=== PATIENT | female | born 1985 | race Caucasian/White ===

== ENCOUNTER 2022-03-21 11:25 | Day surgery (SDC) | payer OTHER | END 2022-03-21 12:45 | disposition home or self-care (01) | LOC: CSHSDC/OP 11:25 | PROVIDERS: ATTEND Obstetrics & Gynecology | DX: Z29.13 Encounter for prophylactic Rho(D) immune globulin (principal); Z67.11 Type A blood, Rh negative; Z3A.31 31 weeks gestation of pregnancy | CPT/HCPCS: 96372 ==

== ENCOUNTER 2022-05-09 10:45 | Outpatient (CLI) | payer OTHER | END 2022-05-09 10:46 | disposition home or self-care (01) | LOC: CSHLAB 10:45 | PROVIDERS: ATTEND Obstetrics & Gynecology | DX: Z20.822 Contact with and (suspected) exposure to COVID-19 (principal) | CPT/HCPCS: 87811 ==

== ENCOUNTER 2022-05-13 05:18 | Inpatient (IN) | payer OTHER ==
[~2022-05-13 05:18] MED LIST: Acetaminophen 500 MG TAB PO PRN; Carboprost 250 MCG/ML AMP IM PRN; Diphenoxylate HCl/Atropine Tablet PO PRN; Docusate 100 MG CAP PO PRN; HYDROcodone/Acetaminophen 5/325 mg Tablet PO PRN; Ibuprofen 800 MG TAB PO PRN; Lidocaine 1% (PF) 30 ML VIAL SC PRN; Methylergonovine 0.2 MG/ML VIAL IM PRN; Misoprostol 200 MCG TAB PR PRN; NS w/ Oxytocin 30 units 500 ML IV SCH; Ondansetron PF 4 MG/2 ML Vial IVP PRN; Promethazine HCl 25 MG/ML VIAL IM PRN; hydrALAZINE 20 MG/ML VIAL SLOW IVP PRN
[2022-05-13 05:43] VITALS: BMI 21.5
[2022-05-13 06:23] LABS: Hemoglobin 10.4 g/dL (12.0-15.5); Mean Corpuscular HGB CONC 33.8 g/dL (32.0-36.0); Mean Corpuscular Hemoglobin 29.6 pg (27.0-33.0); Mean Corpuscular Volume 87.7 fl (81.6-98.3); Mean Platelet Volume 10.1 fl (7.4-10.4); Platelet Count 187 10x3/uL (150-450); Red Blood Cell (RBC) Count 3.51 10x6/uL (3.90-5.03); White Blood Cell (WBC) Count 9.3 10x3/uL (3.5-10.5)
[2022-05-13 07:00] LABS: Syphilis Antibody Nonreactive (Nonreactive); Syphilis Antibody Index 0.02 S/CO (<1.00 Non-Reactive)
[2022-05-13 07:01] LABS: Hep B Surf Ag Non-Reactive S/CO (NonReactive)
[2022-05-13 07:09] LABS: HBSAg Index 0.22 S/CO (0-0.99)
[2022-05-13] MEDS ORDERED: Fentanyl 2 mcg/Bup 0.1% Cadd 100 ML ONE (12:16)
[2022-05-13] MEDS: Lactated Ringer's 1,000 ML IV SCH ×4 (12:49→20:30)
[2022-05-13] MEDS ORDERED: Acetaminophen 325 MG TAB PO PRN (12:54)
[2022-05-13] MEDS ORDERED: Promethazine HCl 25 MG/ML VIAL IM PRN ×2 (12:54→15:23)
[2022-05-13] MEDS ORDERED: Naloxone HCl 0.4 mg/ml Vial IVP PRN ×2 (12:54)
[2022-05-13] MEDS ORDERED: ePHEDrine Sulfate 50 MG/10 ML VIAL SLOW IVP PRN (12:54)
[2022-05-13] MEDS ORDERED: diphenhydrAMINE 50 MG/ML VIAL IVP PRN (12:54)
[2022-05-13] MEDS ORDERED: Moisturizing Cream (Eucerin) 113 GM JAR TOP PRN (12:54)
[2022-05-13] MEDS ORDERED: Ondansetron PF 4 MG/2 ML Vial IVP PRN ×2 (12:54→15:23)
[2022-05-13] MEDS ORDERED: Lactated Ringer's 500 ML IV PRN (12:54)
[2022-05-13] MEDS ORDERED: Fentanyl 2 mcg/Bupivacaine 0.1% Cassette 100 ML EPIDURAL SCH (13:00)
[2022-05-13] MEDS ORDERED: Communication Order-Pharmacy FS SCH (13:00)
[2022-05-13] MEDS ORDERED: Benzocaine-Menthol 82.5 ML CAN TOP PRN (15:23)
[2022-05-13] MEDS ORDERED: Lanolin Ointment 7 GM TUBE TOP PRN (15:23)
[2022-05-13] MEDS ORDERED: Bisacodyl 10 MG SUPP PR PRN (15:23)
[2022-05-13] MEDS ORDERED: Milk Of Magnesia 30 ML UDCUP PO PRN (15:23)
[2022-05-13] MEDS ORDERED: Preparation H Ointment 28 GM TUBE PR PRN (15:23)
[2022-05-13] MEDS ORDERED: diphenhydrAMINE 25 MG CAP PO PRN (15:23)
[2022-05-13] MEDS ORDERED: Zolpidem Tartrate 5 MG TAB PO PRN (15:23)
[2022-05-13] MEDS ORDERED: Measles/Mumps/Rubella 10 MCG/0.5 ML VIAL SC ONE (15:23)
[2022-05-13] MEDS ORDERED: HYDROcodone/Acetaminophen 5/325 mg Tablet PO PRN (15:23)
[2022-05-13] MEDS ORDERED: hydrALAZINE 20 MG/ML VIAL SLOW IVP PRN (15:23)
[2022-05-13] MEDS ORDERED: Methylergonovine 0.2 MG/ML VIAL IM PRN (15:23)
[2022-05-13] MEDS ORDERED: Boostrix 0.5 ML (Tdap) VIAL IM ONE (15:23)
[2022-05-13] MEDS ORDERED: NS w/ Oxytocin 30 units 500 ML IV SCH (15:23)
[2022-05-13] MEDS ORDERED: Ibuprofen 800 MG TAB PO SCH (16:00)
[2022-05-13] MEDS: Ferrous Sulfate 325 MG TAB PO SCH (17:04)
[2022-05-13] MEDS: Docusate 100 MG CAP PO SCH (21:25)
[2022-05-13] MEDS: Ibuprofen 800 MG TAB PO SCH (21:40)
[2022-05-14 04:44] LABS: Hemoglobin 10.3 g/dL (12.0-15.5); Mean Corpuscular HGB CONC 33.9 g/dL (32.0-36.0); Mean Corpuscular Hemoglobin 29.8 pg (27.0-33.0); Mean Corpuscular Volume 87.9 fl (81.6-98.3); Mean Platelet Volume 9.9 fl (7.4-10.4); Platelet Count 168 10x3/uL (150-450); RBC Distribution Width 12.9 % (11.5-14.5); Red Blood Cell (RBC) Count 3.46 10x6/uL (3.90-5.03); White Blood Cell (WBC) Count 12.8 10x3/uL (3.5-10.5)
[2022-05-14] MEDS: Lactated Ringer's 1,000 ML IV SCH ×2 (05:52→13:47)
[2022-05-14] MEDS: Ibuprofen 800 MG TAB PO SCH ×2 (05:54→13:47)
[2022-05-14] MEDS: Ferrous Sulfate 325 MG TAB PO SCH (08:08)
[2022-05-14] MEDS: Docusate 100 MG CAP PO SCH (08:34)
[2022-05-14] MEDS ORDERED: Prenatal Vitamin 1 TAB PO SCH (09:00)
[2022-05-14 11:31] VITALS: BP 101/51; TEMP 98.1
[2022-05-14] MEDS ORDERED: Varicella virus, LIVE 0.5 ML VIAL SC ONE (15:23)
== END 2022-05-14 16:45 | disposition home or self-care (01) | DRG 807 ==
LOC: CSHLD 05:18 → CSHPP 15:40
PROVIDERS: ADMIT Obstetrics & Gynecology; ATTEND Obstetrics & Gynecology
PROC: 10E0XZZ Delivery of Products of Conception, External Approach (ICD-10-PCS; principal; 2022-05-13)
DX: O26.893 Other specified pregnancy related conditions, third trimester (principal); Z37.0 Single live birth; Z67.11 Type A blood, Rh negative; Z3A.39 39 weeks gestation of pregnancy; Z20.822 Contact with and (suspected) exposure to COVID-19; Z88.0 Allergy status to penicillin; O76 Abnormality in fetal heart rate and rhythm complicating labor and delivery
CPT/HCPCS: 36415; 51702; 85027; 86780; 86850; 86870; 86900; 86901; 87340; J0595; J2590; J7120